=== PATIENT | female | born 1975 | race Caucasian/White ===

== ENCOUNTER → 2018-06-15 16:30 | Outpatient (CLI) | payer OTHER, SELFPAY ==
[2018-06-25 08:31] LABS: HPV APTIMA, High Risk Negative (Negative)
[2018-06-25 08:37] LABS: HPV Reflexed? YES, CHARGE PATIENT
== END ==
PROVIDERS: Family Provider Family Medicine; PCP Family Medicine; Referring Provider Obstetrics & Gynecology; Visit Provider Obstetrics & Gynecology
DX: Z12.4 Encounter for screening for malignant neoplasm of cervix (principal)
CPT/HCPCS: 87624; 88175; G0145

== ENCOUNTER → 2019-05-04 16:05 | Outpatient (CLI) | payer OTHER, SELFPAY ==
[2017-03-16 06:20] VITALS: BMI 35.2
--- NOTE | 2019-05-03 16:30 | VUL_PTH ---
PATIENT: BELLA MILLER LOC: [facility] U#:[id number] AGE/SX: 50/F ROOM: RE05/04/[address]: Dr. Mark Luz MD : 1975 BED: DIS: SPEC #: [id number] RECD: 05/04/19 15:57 STATUS: LISANDRO ISABEL #: [id number] CHILANGO: 05/03/19 16:[address]: Mark Luz DEPT: SURGICAL PATHOLOGY RECD BY: Renato Hernandez ENTERED: 05/05/19 08:06 SP TYPE: VULVA BX OTHR DR: Dr. Rob Sarmiento MD Tissues: Vulva, NOS Procedures: Surgery Specimen Level IV HEADER OPERATION: Removal of right vulvar cyst PRE-OP DIAGNOSIS: N90.7 TISSUE SUBMITTED: Right vulvar cyst removed MICROSCOPIC DIAGNOSIS Right vulvar cyst, biopsy: Consistent with fragments of hidroadenoma papilliferum. AM:allison 05/06/19 MICROSCOPIC DESCRIPTION Slides are reviewed. GROSS DESCRIPTION Received in fixative is one container labeled with the patient's name and designated right vulvar cyst. The specimen consists of multiple irregular fragments of llanes-white soft tissue that in aggregate measure 0.5 x 0.3 x 0.1 cm. The specimen is totally submitted in one cassette. / SJ:rg 05/05/19 TC:1 CPT: 38980
== END ==
PROVIDERS: Family Provider Family Medicine; PCP Family Medicine; Referring Provider Obstetrics & Gynecology; Visit Provider Obstetrics & Gynecology
DX: N90.7 Vulvar cyst (principal)
CPT/HCPCS: 88305

== ENCOUNTER → 2020-10-23 15:15 | Outpatient (CLI) | payer OTHER, SELFPAY ==
[2017-03-16 06:20] VITALS: BMI 35.2
[2020-10-26 20:37] LABS: HPV Reflexed? NOT INDICATED
== END ==
PROVIDERS: PCP Family Medicine; Visit Provider Obstetrics & Gynecology
DX: Z12.4 Encounter for screening for malignant neoplasm of cervix (principal)
CPT/HCPCS: 88175; G0145

== ENCOUNTER → 2024-01-26 | Outpatient (CLI) | payer OTHER, SELFPAY ==
[2024-01-26 09:47] LABS: Absolute Lymphocyte Count 0.86 X10^3/uL (0.83-4.51); Absolute Neutrophil Count 2.1 X10^3/uL (2.0-7.7); Basophil# 0.04 X10^3/uL; Basophil% 1.2 % (0-1); Eosinophil# 0.11 X10^3/uL; Eosinophils% 3.3 % (0-5); Hematocrit 38.7 % (37-47); Hemoglobin 12.9 g/dL (12.0-15.0); Lymphocyte # 0.86 X10^3/ul (0.83-4.51); Lymphocyte % 25.4 % (19-41); Mean Corp Hgb Conc 33.3 g/dL (32-36); Mean Corpuscular Hgb 30.1 pg (27.0-32.0); Mean Corpuscular Volume 90.4 fL (81-99); Mean Platelet Vol. 8.9 fl (6.2-12.0); Monocyte# 0.21 X10^3/uL; Monocyte% 6.2 % (0-10); NRBC Flagged by Analyzer 0 % (0-5); Neutrophil # 2.13 X10^3/uL (2.7-7.7); POSITIVE MORPHOLOGY YES; Platelet Count 220 K/mm3 (150-450); RBC Distribution Width CV 12.1 % (11.6-14.6); RBC Distribution Width SD 39.7 fl (35.1-43.9); Red Blood Count 4.28 M/mm3 (4.2-5.4); White Blood Count 3.4 K/mm3 (4.4-11.0)
[2024-01-26 10:07] LABS: Differential Indicated SCAN CRITERIA MET
[2024-01-26 10:21] LABS: Vitamin D,25 Hydroxy 69.2 ng/mL
[2024-01-26 10:23] LABS: ALB/GLOB Ratio 1.1 RATIO (0.9-2.4); AST(SGOT) 39 U/L (15-37); Alanine Aminotransfer ALT/SGPT 60 U/L (13-56); Alkaline Phosphatase 43 U/L (45-117); Anion Gap 4 (5-15); BUN 19 mg/dL (7-18); BUN/Creat Ratio 22.5 RATIO (10-20); Calcium,Total 8.6 mg/dL (8.5-10.1); Chloride 108 mmol/L (98-107); Cholesterol 201 mg/dL (200); Creatinine, Serum 0.85 mg/dL (0.55-1.02); EST Glomerular Filtration Rate 77 mL/min (>60); Est Glom Filt Rate - Afr Amer 93 mL/min (>60); Estradiol 22.3 pg/mL; Follicle Stimulating Hormone 50.2 mIU/mL; Globulin 3.6 g/dL (2.2-4.2); Glucose 96 mg/dL (74-106); High Density Lipoprotein 51 mg/dL; Potassium 4.1 mmol/L (3.5-5.1); Protein, Total 7.6 g/dL (6.4-8.2); Sodium Level 139 mmol/L (136-145); Triglycerides 81 mg/dL; Very Low Density Lipoprotein 16 mg/dL (5-40)
[2024-01-26 10:27] LABS: Hemoglobin A1c 5.3 % (3.8-5.6)
[2024-01-26 12:16] LABS: Differential Comment SCANNED; Reactive Lymphocyte 1+
[2024-01-29 18:07] LABS: Testosterone Free 0.6 pg/mL (0.0-4.2)
== END | disposition home or self-care (01) ==
LOC: PAVLAB 09:34
PROVIDERS: PCP Family Medicine; Referring Provider Obstetrics & Gynecology; Visit Provider Obstetrics & Gynecology
DX: N95.1 Menopausal and female climacteric states (principal); Z13.1 Encounter for screening for diabetes mellitus; Z13.0 Encounter for screening for diseases of the blood and blood-forming organs and certain disorders involving the immune mechanism; Z13.21 Encounter for screening for nutritional disorder
CPT/HCPCS: 36415; 80053; 80061; 82306; 82670; 83001; 83036; 84402; 85025

== ENCOUNTER → 2024-02-29 | Outpatient (CLI) | payer OTHER, SELFPAY ==
--- NOTE | 2024-02-29 14:01 | BI_ITS ---
MAMMOGRAPHY - BILATERAL SCREENING REASON FOR EXAM: Female, 49 years old. Routine annual screening examination. PERTINENT HISTORY: Non-contributory. TECHNIQUE: Digital bilateral breast tracey (3D mammographic acquisition) in the CC and MLO projections. 2-D mediolateral oblique (MLO) and craniocaudad (CC) views of both breasts were obtained. CAD: Full Field Digital Mammography with Computer Added Detection was performed. COMPARISON: Comparison is made with prior outside examination of January 09, 2022. FINDINGS: Breast Composition: The breasts are heterogeneously dense, which may obscure small masses. There are no dominant masses or suspicious calcifications. No other significant abnormalities are identified. There has been no significant change since the prior study. BI/SCRN MAMM (CAD)W/TRACEY BILAT IMPRESSION: Stable bilateral screening mammogram. Yearly follow-up mammogram recommended. (A) ASSESSMENT CATEGORY: BIRADS Category 1: Negative. A letter regarding these results will be sent to the patient by the facility within 30 days. Approximately 10% of breast cancers are not detected by mammography. A normal mammogram should not delay biopsy of a clinically suspicious abnormality. [id number] Electronically Signed: Titi Dowell MD at 14:49 EDT ,
== END | disposition home or self-care (01) ==
LOC: OPBI 14:01
PROVIDERS: PCP Family Medicine; Referring Provider Obstetrics & Gynecology; Visit Provider Obstetrics & Gynecology
DX: Z12.31 Encounter for screening mammogram for malignant neoplasm of breast (principal)
CPT/HCPCS: 77063; 77067

== ENCOUNTER → 2025-02-20 | Outpatient (CLI) | payer OTHER, SELFPAY ==
--- NOTE | 2025-02-20 11:50 | POL_PTH ---
PATIENT: BELLA MILLER LOC: [facility] U#:[id number] AGE/SX: 50/F ROOM: RE02/20/[address]: Dr. Kellen Salcedo MD : 1975 BED: DIS: 02/20/2025 SPEC #: [id number] RECD: 02/20/25 16:38 STATUS: LISANDRO REBrent #: [id number] CHILANGO: 02/20/25 11:[address]: Kellen Salcedo DEPT: SURGICAL PATHOLOGY RECD BY: Lalo Gross ENTERED: 02/21/25 10:52 SP TYPE: Polyp OTHR DR: Mayte Moreira PA-C Tissues: A - POLYP Procedures: Surgery Specimen Level IV HEADER OPERATION: Cervical polyp removal PRE-OP DIAGNOSIS: Cervical polyp TISSUE SUBMITTED: A- Cervical polyp MICROSCOPIC DIAGNOSIS A. Cervix, polyp, excision: - Benign endocervical polyp with squamous metaplasia. MICROSCOPIC DESCRIPTION Slides are reviewed. GROSS DESCRIPTION A. Received in formalin labeled with the patient's name and date of is a 2.0 x 1.8 x 1.1 cm aggregate of llanes-pink and granular tissue fragments admixed with mucoid material. The largest tissue fragment (1.6 x 0.8 x 0.8 cm) is trisected (on the long axis). Entirely submitted in 2 cassettes as follows: A1: Trisected tissue fragmentA2: Tissue fragments and mucoid material AL 02/21/2025 CPT:18375
[2025-02-23 09:08] LABS: HPV APTIMA, High Risk Negative (Negative)
== END | disposition home or self-care (01) ==
LOC: LABSPEC 16:00
PROVIDERS: PCP Family Medicine; Visit Provider Obstetrics & Gynecology
DX: Z12.4 Encounter for screening for malignant neoplasm of cervix (principal); N84.1 Polyp of cervix uteri; N95.1 Menopausal and female climacteric states
CPT/HCPCS: 87624; 88175; 88305; G0145

== ENCOUNTER → 2025-02-28 | Outpatient (CLI) | payer OTHER, SELFPAY ==
--- NOTE | 2025-02-28 10:45 | BI_ITS ---
EXAM: SCRN MAMM (CAD)W/TRACEY BILAT DATE: 02/28/2025 CLINICAL HISTORY: F, Age 50 y/o , SCREENING FOR BREAST CANCER Maternal grandmother with breast cancer. TECHNIQUE: SCRN MAMM (CAD)W/TRACEY BILAT COMPARISON: Prior exam(s) dated February 29, 2024.. FINDINGS: TISSUE DENSITY: The breasts are heterogeneously dense, which may obscure small masses. Bilateral Breast Mammographic Findings: No significant masses, calcifications or other abnormalities are identified. No suspicious masses, areas of developing architectural distortion, or suspicious calcifications. There has been no significant interval change. BI/SCRN MAMM (CAD)W/TRACEY BILAT IMPRESSION: Stable examination. OVERALL FINAL ASSESSMENT BI-RADS 1: NEGATIVE. RECOMMENDATION: Routine annual follow-up in 1 Year A letter with findings and recommendations will be mailed to the patient. Reading Location: [id number]
--- OUTSIDE RECORDS SUMMARY | 2025-02-28 21:45 | XMS RPT_ITS | CCD ---
Author Organization [facility] Care Team Providers Care Rack Room Worker Name Role Phone Lillie JOLLEY, Mayte Primary Care Provider [phone] Mayte Moreira PA-C Referring Provider Denisse ROSARIO, Dr. Foreman Attending Provider HAM ACOSTA MD Primary Care Unavailable HAM ACOSTA MD Attending Unavailable [facility] Consulting Unavailable HAM ACOSTA MD Admitting Unavailable PROVIDER, UNKNOWN Consulting Unavailable [facility] Consulting Unavailable KELLEN LAZARO MD Admitting Unavailab le KELLEN LAZARO MD Primary Care Unavailab le KELLEN LAZARO MD Attending Unavailab le PROVIDER, UNKNOWN Consulting Unavailable HAM ACOSTA MD Attending Unavailable [facility] Consulting Unavailable HAM ACOSTA MD Admitting Unavailable HAM ACOSTA MD Primary Care Unavailable PROVIDER, UNKNOWN Consulting Unavailable [facility], [place] Primary Care Unavailable Kellen Lazaro Attending Unavailable Kellen Lazaro Attending Unavailable Kellen Lazaro Referring Unavailable [facility], [place] Primary Care Unavailable Kellen Lazaro Referring Unavailable [facility], [place] Primary Care Unavailable Kellen Lazaro Attending Unavailable [facility], [place] Primary Care Unavailable Rob Sarmiento Referring Unavailable Kellen Lazaro Attending Unavailable [facility], [place] Primary Care Unavailable [facility], [place] Referring Unavailable Kellen Lazaro Attending Unavailable Medications Current Medications Medication Drug Class(es) Dates Sig (Normalized) Sig (Original) levothyroxine sodium 0.15 mg oral tablet (2 sources) l-Thyroxine Start: 08-07-2023 take 1 tablet by mouth once daily Levothyroxine (Synthroid) 150 mcg tablet Active 150 ug PO DAILY August 07, 2023 1:00am Completed/Discontinued Medications Medication Drug Class(es) Dates Sig (Normalized) Sig (Original) acetaminophen 325 mg / HYDROcodone bitartrate 5 mg oral tablet (2 sources) Opioid Agonist Start: 03-16-2017 End: 08-07-2023 Hydrocodone-Aceta minophen 1 TABLET tablet Discontinued 1 - 2 {tbl} PO EVERY 4 HOURS NEEDED as needed for Severe Pain (6-10/10) 10 0 March 16, 2017 12:00am August 07, 2023 11:34am acetaminophen 325 mg / oxyCODONE hydrochloride 2.5 mg oral tablet (2 sources) Opioid Agonist Start: 08-07-2023 End: 01-26-2024 Oxycodone-Acetami nophen (Percocet) 2.5-325 mg tablet Discontinued 1 {tbl} PO THREE TIMES A DAY as needed 0 August 07, 2023 1:00am January 26, 2024 8:29am ALPRAZolam 0.5 mg oral tablet (2 sources) Benzodiazepine Start: 03-13-2017 End: 08-07-2023 take 1 tablet by mouth twice daily as needed for anxiety Alprazolam 0.5 MG tablet Discontinued 0.5 mg PO TWICE DAILY NEEDED as needed for Anxiety March 13, 2017 12:00am August 07, 2023 11:34am aspirin 500 mg / caffeine 32.5 mg oral tablet (2 sources) Platelet Aggregation Inhibitor, Nonsteroidal Anti-inflammatory Drug, Central Nervous System Stimulant, Methylxanthine Start: 08-07-2023 End: 01-26-2024 Aspirin-Caffeine (David Back And Body) 500-32.5 mg tablet Discontinued {tbl} PO August 07, 2023 1:00am January 26, 2024 8:29am busPIRone hydrochloride 30 mg oral tablet (2 sources) Start: 03-13-2017 End: 08-07-2023 take 1 tablet by mouth three times daily as needed for anxiety Buspirone 30 MG tablet Discontinued 30 mg PO THREE TIMES A DAY as needed for Anxiety March 13, 2017 12:00am August 07, 2023 11:34am estradiol 1 mg oral tablet (8 sources) Estrogen Start: 02-01-2024 End: 02-20-2025 take 1 tablet by mouth once daily Estradiol (Estrace) 1 mg tablet Discontinued 1 mg PO daily 30 0 February 08, 2025 10:25am February 20, 2025 11:38am Start: 01-26-2024 End: 02-01-2024 Estradiol 0.075 mg/24 hr pat ch weekly Discontinued 1 NMA TD EVERY WEEK 4 12 January 26, 2024 12:00am February 01, 2024 11:00am Yoel ElaineB.Animal is 1 EACH capsule (2 sources) Start: 03-13-2017 End: 08-07-2023 take 1 capsule by mouth once daily [place],Yoel,B.Animalis 1 EACH capsule Discontinued 1 NMA PO DAILY March 13, 2017 12:00am August 07, 2023 11:35am LORazepam 1 mg oral tablet (2 sources) Harry odia zepi ne Start: 01-26-2024 End: 02-20-2025 take 1 tablet by mouth twice daily as needed for anxiety Lorazepam (Ativan) 1 mg tablet Discontinued 1 mg PO TWICE A DAY as needed for anxiety 14 0 January 26, 2024 12:00am February 20, 2025 11:17am Multivitamin tablet (2 sources) Start: 01-26-2024 End: 02-20-2025 Multivitamin tablet Discontinued 1 {tbl} PO DAILY January 26, 2024 12:00am February 20, 2025 11:17am Multivitamin With Folic Acid (Thera) 1 TABLET tablet (2 sources) Start: 03-13-2017 End: 01-26-2024 take 1 tablet by mouth once daily Multivitamin With Folic Acid (Thera) 1 TABLET tablet Discontinued 1 {tbl} PO DAILY March 13, 2017 12:00am January 26, 2024 8:29am Plexus (2 sources) Start: 03-13-2017 End: 01-26-2024 Plexus Discontinued 1 NMA PO DAILY March 13, 2017 12:00am January 26, 2024 8:29am progesterone 100 mg oral capsule (6 sources) Francis vargas Start: 01-26-2024 End: 02-20-2025 take 1 capsule by mouth once daily in the evening Progesterone Micronized (Prometrium) 100 mg capsule Discontinued 100 mg PO EVERY EVENING 30 0 February 08, 2025 10:27am February 20, 2025 11:38am Problems Problem Classification Problem Date Documented Date Episodic/Chronic Menopausal disorders (4 sources) Menopausal syndrome; Translations: [Menopausal and female climacteric states] 01-26-2024 Chronic Comment on above: discussed options an d plan HRT. Mood disorders (4 sources) Depressive disorder; Translations: [Depression] 01-26-2024 Chronic Comment on above: and anxiety PRN ativ an Other acquired deformities (2 sources) Scoliosis deformity of spine; Translations: [Scoliosis, unspecified] 01-26-2024 Chronic Other female genital disorders (2 sources) Mass of vulva; Translations: [Other specified noninflammatory disorders of vulva and perineum] 01-26-2024 Episodic Comment on above: inclusion cyst, offe red drainage if desired but not indicated unless symptomatic. Other female genital disorders (1 source) Polyp of cervix uteri; Translations: [Polyp of cervix uteri] Onset: 02-20-2025 Episodic Other screening for suspected conditions (not mental disorders or infectious disease) (6 sources) Encounter for screening mammogram for malignant neoplasm of breast; Translations: [Encounter for screening for malignant neoplasm of cervix] Onset: 02-20-2025 Episodic Unclassified (1 source) Encounter for screening for malignant neoplasm of colon Unclassified (2 sources) Z12.11 - Encounter for screening for malignant neoplasm of colon Results Test Name Value Interpretation Reference Range Facility PAP IG HPV APTIMA 16/18,45on 02-23-2025 ADEQ Comment Normal . [facility] Comment on above: Order Comment: Speci men Comment: [id number] Specimen Comment: Source.............Cervix Specimen Comment: Other..............Post Menopausal Specimen Comment: No. of containers..01 ThinPrep Vial Result Comment: Sati sfactory for evaluation. Endocervical and/or squamous metaplastic cells (endocervical component) are present. Performed By: #### L 7400.0280 #### [facility] [address] [place], [address] COMM . Normal . [facility] Comment on above: Order Comment: Speci men Comment: [id number] Specimen Comment: Source.............Cervix Specimen Comment: Other..............Post Menopausal Specimen Comment: No. of containers..01 ThinPrep Vial Performed By: #### L 7400.0280 #### [facility] [address] [place], [place], [id number] COMMENT Comment Normal . [facility] Comment on above: Order Comment: Speci men Comment: [id number] Specimen Comment: Source.............Cervix Specimen Comment: Other..............Post Menopausal Specimen Comment: No. of containers..01 ThinPrep Vial Result Comment: This liquid based ThinPrep(R) pap test was screened with the use of an image guided system. Performed By: #### L 7400.0280 #### [facility] [address] [place], [address] DIAG Comment Normal . [facility] Comment on above: Order Comment: Speci men Comment: [id number] Specimen Comment: Source.............Cervix Specimen Comment: Other..............Post Menopausal Specimen Comment: No. of containers..01 ThinPrep Vial Result Comment: NEGA TIVE FOR INTRAEPITHELIAL LESION OR MALIGNANCY. Performed By: #### L 7400.0280 #### [facility] [address] [place], [place], [id number] HPV APTIMA, HR Negative Normal Negative [facility] Comment on above: Order Comment: Speci men Comment: [id number] Specimen Comment: Source.............Cervix Specimen Comment: Other..............Post Menopausal Specimen Comment: No. of containers..01 ThinPrep Vial Result Comment: This nucleic acid amplification test detects fourteen high- risk HPV types (16,18,31,33,35,39,45,51,52,56,58,59,66,68) without differentiation. Performed By: #### L 7400.0280 #### [facility] [address] [place], [address] HPV Fiona Rfx Comment Normal . [facility] Comment on above: Order Comment: Speci men Comment: [id number] Specimen Comment: Source.............Cervix Specimen Comment: Other..............Post Menopausal Specimen Comment: No. of containers..01 ThinPrep Vial Result Comment: Crit erclark not met, HPV Genotype not performed. Performed at: - [facility] [id number] Water Resource Project Manager: Ladan Benitez MD, Phone: [phone] Performed at: =G - [facility] [id number] Water Resource Project Manager: Ladan Benitez MD, Phone: [phone] Performed By: #### L 7400.0280 #### [facility] [address] [place], [address] PAPSMR Comment Normal . [facility] Comment on above: Order Comment: Speci men Comment: [id number] Specimen Comment: Source.............Cervix Specimen Comment: Other..............Post Menopausal Specimen Comment: No. of containers..01 ThinPrep Vial Result Comment: The Pap smear is a screening test designed to aid in the detection of premalignant and malignant conditions of the uterine cervix. It is not a diagnostic procedure and should not be used as the sole means of detecting cervical cancer. Both false-positive and false-negative reports do occur. Performed By: #### L 7400.0280 #### [facility] [address] [place], [place], [id number] PERFORM Comment Normal . [facility] Comment on above: Order Comment: Speci men Comment: [id number] Specimen Comment: Source.............Cervix Specimen Comment: Other..............Post Menopausal Specimen Comment: No. of containers..01 ThinPrep Vial Result Comment: Neftali Parra, Wreath Machine Operator (ASCP) Performed By: #### L 7400.0280 #### [facility] [address] [place], [address] CBC + DIFFon 02-21-2025 Baso # 0.02 x10EE3/UL Normal 0.00 - 0.10 [facility] Comment on above: Performed By: #### 2 20511 #### [address] [address] Basophils/100 WBC (Bld) 0.5 % Normal 0.0 - 2.0 [facility] Comment on above: Performed By: #### 2 26916 #### [address] [address] CBC + DIFF Normal [facility] Comment on above: Result Comment: CBC- COMPLETE BLOOD COUNT Performed By: #### 2 87278 #### [address] [address] EO # 0.09 x10EE3/UL Normal 0.00 - 0.50 [facility] Comment on above: Performed By: #### 2 18826 #### [facility],[address] [place] [address] Eosinophils/100 WBC (Bld) 1.9 % Normal 0.0 - 7.0 [facility] Comment on above: Performed By: #### 2 94913 #### [address] [address] Erythrocyte distribution width (RBC) [Ratio] 12.5 % Normal 12.0 - 15.6 [facility] Comment on above: Performed By: #### 2 34925 #### [address] [address] Hematocrit (Bld) [Volume fraction] 40.4 % Normal 34.0 - 46.0 [facility] Comment on above: Performed By: #### 2 92026 #### [facility],[address] [place] [address] Hemoglobin (Bld) [Mass/Vol] 14.1 g/dL Normal 12.0 - 16.0 [facility] Comment on above: Performed By: #### 2 87052 #### [facility],[address] [place], [place] [id number] Lymph # 1.59 x10EE3/UL Normal 0.80 - 2.80 [facility] Comment on above: Performed By: #### 2 36376 #### [facility],[address] [place], [place] [id number] Lymphocytes/100 WBC (Bld) 33.0 % Normal 20.0 - 45.0 [facility] Comment on above: Performed By: #### 2 97922 #### [facility],[address] [place], [place] [id number] MANUAL DIFF N/A Normal [facility] Comment on above: Performed By: #### 2 82537 #### [facility],[address] [place] [address] MCH (RBC) [Entitic mass] 31 pg Normal 27 - 33 [facility] Comment on above: Performed By: #### 2 01974 #### [facility],[address] [place] [address] MCHC 35 X10 3 Normal 32 - 36 [facility] Comment on above: Performed By: #### 2 68141 #### [facility],[address] [place] [address] MCV (RBC) [Entitic vol] 89 fL Normal 80 - 99 [facility] Comment on above: Performed By: #### 2 95434 #### [facility],[address] [place], [place] [phone] Beadle # 0.29 x10EE3/UL Normal 0.20 - 1.00 [facility] Comment on above: Performed By: #### 2 90413 #### [facility],[address] [place], [place] [phone] MONOS % 5.9 % Normal 0.0 - 10.0 [facility] Comment on above: Performed By: #### 2 98835 #### [facility],[address] [place] [address] Morphology Moncho (Bld) [Interp] N/A Normal [facility] Comment on above: Performed By: #### 2 85451 #### [facility],[address] [place] [address] Neut # 2.83 x10EE3/UL Normal 1.50 - 7.10 [facility] Comment on above: Performed By: #### 2 34139 #### [facility],[address] [place] [address] Neutrophils/100 WBC (Bld) 58.7 % Normal 46.0 - 76.0 [facility] Comment on above: Performed By: #### 2 82289 #### [facility],[address] [place] [address] PLATELET 216 x10EE3/UL Normal 150 - 450 [facility] Comment on above: Performed By: #### 2 57638 #### [facility],[address] [place] [address] Platelet mean volume (Bld) [Entitic vol] 7.8 fL Normal 6.6 - 10.5 [facility] Comment on above: Result Comment: AUTO MATED DIFFERENTIAL Performed By: #### 2 88998 #### [facility],[address] [place] [address] RBC 4.52 x 10EE6/UL Normal 4.10 - 5.30 [facility] Comment on above: Performed By: #### 2 75848 #### [place] [address],[place] [address] WBC 4.8 x 10EE3/UL Normal 4.5 - 10.8 [facility] Comment on above: Performed By: #### 2 22667 #### [facility],[address] [place] [address] CMP with eGFRon 02-21-2025 AGE 50 years Normal [facility] Comment on above: Performed By: #### 2 08466 #### [facility],[address] [place] [address] Albumin [Mass/Vol] 3.8 g/dL Normal 3.4 - 5.0 [facility] Comment on above: Performed By: #### 2 03979 #### [facility],[address] [place] [address] Albumin/Globulin [Mass ratio] 1.0 {ratio} Normal 0.9 - 1.6 [facility] Comment on above: Performed By: #### 2 24862 #### [facility],[address] [place] [address] ALK PHOS 38 U/L Low 46 - 116 [facility] Comment on above: Performed By: #### 2 55262 #### [facility],[address] [place] [address] ALT [Catalytic activity/Vol] 20 U/L Normal 16 - 63 [facility] Comment on above: Performed By: #### 2 36013 #### [facility],[address] [place] [address] Anion gap [Moles/Vol] 12 mmol/L Normal 10 - 20 [facility] Comment on above: Performed By: #### 2 81759 #### [facility],[address] [place] [address] AST [Catalytic activity/Vol] 15 U/L Normal 13 - 39 [facility] Comment on above: Performed By: #### 2 14659 #### [facility],[address] [place] [address] B/C RATIO 20 ratio Normal 0 - 30 [facility] Comment on above: Performed By: #### 2 81818 #### [facility],[address] [place] [address] Bilirubin [Mass/Vol] 0.4 mg/dL Normal 0.2 - 1.0 [facility] Comment on above: Performed By: #### 2 00695 #### [facility],[address] [place] [address] Calcium [Mass/Vol] 8.1 mg/dL Low 8.5 - 10.1 [facility] Comment on above: Performed By: #### 2 27951 #### [facility],[address] [place] [address] Chloride [Moles/Vol] 105 mmol/L Normal 98 - 107 [facility] Comment on above: Performed By: #### 2 94683 #### [facility],[address] [place] [address] CMP with eGFR Normal [facility] Comment on above: Result Comment: COMP REHENSIVE METABOLIC PANEL Performed By: #### 2 52268 #### [facility],[address] [place] [address] CO2 [Moles/Vol] 25.7 mmol/L Normal 21.0 - 32.0 [facility] Comment on above: Performed By: #### 2 66309 #### [facility],[address] [place] [address] Creatinine [Mass/Vol] 0.82 mg/dL Normal 0.55 - 1.02 [facility] Comment on above: Performed By: #### 2 00348 #### [facility],[address] [place] [address] GFR/1.73 sq M.predicted among non-blacks MDRD (S/P/Bld) [Vol rate/Area] mL/min/{1.73_m2} Normal 60 - 999 [facility] Comment on above: Performed By: #### 2 98163 #### [facility],[address] [place] [address] Result Comment: ACCO RDING TO THE NATIONAL KIDNEY DISEASE EDUCATION PROGRAM(NKDE), A NORMAL eGFR IS A VALUE GREATER THAN OR EQUAL TO 60 ML/MIN/1.73 SQ METERS. CHRONIC KIDNEY DISEASE: <60mL/MIN/1.73 SQ METERS KIDNEY FAILURE: <15mL/MIN/1.73 SQ METERS THIS TEST SHOULD ONLY BE USED FOR PATIENTS 18 YEARS OF AGE AND OLDER. Globulin (S) [Mass/Vol] 3.7 g/dL Normal 1.5 - 3.8 [facility] Comment on above: Performed By: #### 2 28481 #### [address] [address] Glucose [Mass/Vol] 85 mg/dL Normal 74 - 106 [facility] Comment on above: Performed By: #### 2 52261 #### [address] [address] Potassium [Moles/Vol] 3.9 mmol/L Normal 3.5 - 5.1 [facility] Comment on above: Performed By: #### 2 99783 #### [address] [address] Protein [Mass/Vol] 7.5 g/dL Normal 6.4 - 8.2 [facility] Comment on above: Performed By: #### 2 24343 #### [address] [address] Sodium [Moles/Vol] 139 mmol/L Normal 136 - 145 [facility] Comment on above: Performed By: #### 2 33490 #### [address] [address] Urea nitrogen [Mass/Vol] 16 mg/dL Normal 7 - 18 [facility] Comment on above: Performed By: #### 2 02481 #### [facility],[address] [place] [address] HEMOGLOBIN A1C (POM)on 02-21 Glucose [Mass/Vol] 116.9 mg/dL High 0.0 - 0.0 [facility] Comment on above: Result Comment: BLDo HEMOGLOBIN A1C REFERENCE RANGESBLDo Suggested Diagnosis HbA1c(%) HbA1C (mmol/mol Diabetic >/=6.5 >/=48 Prediabetes 5.7 - 6.4 39 - 47 Normal <5.7 <39 Performed By: #### 2 90550 #### [facility],[address] [place] [address] HbA1c (Bld) [Mass fraction] 5.7 % Normal 0.0 - 6.5 [facility] Comment on above: Performed By: #### 2 34453 #### [facility],[address] [place] [address] LIPID PROFILEon 02-21-2025 Cholesterol [Mass/Vol] 204 mg/dL Normal 0 - 240 [facility] Comment on above: Performed By: #### 2 64664 #### [facility],[address] [place], [place] [address] Cholesterol in HDL [Mass/Vol] 58 mg/dL Normal 40 - 60 [facility] Comment on above: Performed By: #### 2 64421 #### [facility],[address] [place] [address] Cholesterol in LDL [Mass/Vol] 124 mg/dL Normal 0 - 129 [facility] Comment on above: Performed By: #### 2 90672 #### [facility],[address] [place] [address] Cholesterol.total/Chol esterol in HDL [Mass ratio] 3.5 {ratio} Normal 0.0 - 5.0 [facility] Comment on above: Performed By: #### 2 16618 #### [facility],[address] [place], [place] [address] Lipid 1996 panel Normal [facility] Comment on above: Result Comment: LIPI D PROFILE Performed By: #### 2 05709 #### [facility],[address] [place] [address] Triglyceride [Mass/Vol] 109 mg/dL Normal 0 - 150 [facility] Comment on above: Performed By: #### 2 50234 #### [facility],[address] [place] [address] Cervical or vaginal specimen microscopic examination by liquid based cytology (reportOrdered By: Kellen Lazaro on 02-20-2025 Cytology report Cyto stain.thin prep Doc (Cvx/Vag) Comment . [facility] Comment on above: Criteria not met, HP V Genotype not performed.Performed at: [facility] [id number] Director: Ladan Benitez MD, Phone: [phone] at: =[facility] [id number] Director: Ladan Benitez MD, Phone: [phone] Cervical or vagninal specime n microscopic examination by cytology stain (reported asOrdered By: Kellen Lazaro on 02-20-2025 Cytology report Cyto stain Doc (Cvx/Vag) Comment . [facility] Comment on above: The Pap smear is a s creening test designed to aid in thedetection of premalignant and malignant conditions of theuterine cervix. It is not a diagnostic procedure andshould not be used as the sole means of detecting cervicalcancer. Both false-positive and false-negative reports dooccur. Detection in cervical specim en of any of human papilloma virus (HPV) 16, 18, 31, 33,Ordered By: Kellen Lazaro on 02-20-2025 HPV 16+18+31+33+35+39+45+5 1+52+56+58+59+66+68 DNA Probe+sig amp Ql (Cvx) Negative Negative [facility] Comment on above: This nucleic acid am plification test detects fourteen high- risk HPV types (16,18,31,33,35,39,45,51,52,56,58,59,66,68)without differentiation. Laboratory - CytologyOrdered By: Kellen Lazaro on 02-20-2025 Wreath Machine Operator Cyto stain Nom (Cvx/Vag) [ID] Comment . [facility] Comment on above: Hai Parra Cytolog ist (ASCP) Laboratory - Miscellaneous t estsOrdered By: Kellen Lazaro on 02-20-2025 Service comment (Unsp spec) [Interp] . . [facility] No Panel InformationOrdered By: Kellen Lazaro on 02-20-2025 Pap Smear Specimen Adequacy Comment . [facility] Comment on above: Satisfactory for shauna luation. Endocervical and/or squamous metaplasticcells (endocervical component) are present. Land Use Planner Office Visit Reporton 02-20-2025 Land Use Planner Office Visit Report [facility] [address], [address] [place] [address] OFFICE VISIT Date of Service: 02/20/25 MR#: [id number] Acct: [id number] Name: BELLA MILLER Rep #: [id number] : 1975 Provider: Dr. 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: No Is patient in pain?: No Allergies No Known Allergies Allergy (Verified 02/20/25 11:14) Medications ???Medication ???Instructions ???Recorded ???Confirmed ???Type levothyroxine 150 mcg tablet 150 mcg PO DAILY 08/07/23 02/20/25 History (Synthroid) estradiol 1 mg tablet (Estrace) 1 mg PO QDAY #30 tabs 02/20/25 Rx progesterone micronized 100 mg 100 mg PO QPM #30 caps 02/20/25 Rx capsule (Prometrium) Is last menstrual period known: No Post menopausal: Yes Patient : No : No Control Method: no birthcontrol PFSH Medical History Scoliosis Surgical History H/O knee surgery H/O section H/O thyroidectomy Family History Father Diabetes Hypertension Esophageal cancer Social History adopted: Yes household members: children number of children: 3 current occupational status: employed current occupation: [employer] current occupational exposures/hazards: No pets and animals: Yes history of recent travel: No sexually active: No Smoking Status: Never smoker alcohol intake: current alcohol intake frequency: holidays/special occasions only substance use type: does not use seatbelt use: always do you feel safe at home: Yes History Past Pregnancies Del. Date Name GA/Weeks Outcome Route Bth Weight Gen Labor Lgth Anesthesia Del Locatn Provider FOB Unknown Chaim 2006 Unknown Jaleel 2008 Unknown Quintin 2010 HPI Encounter for routine gynecological examination Details: BELLA MILLER is a 50 year old who presents for annual exam. Last PAP: 10/23/2020 - normal History of abnormal PAP: Last mammogram: 02/29/24 - normal, scheduled for 02/28/25 History of abnormal mammogram: Colon cancer screening: has not had done yet Other preventative health care screenings: PCP Serena Moreira Female Reproductive History Questions: metorrhagia: No, sexually active: Yes, dyspareunia: No and PCB: No Menopausal Symptoms: Yes hot flashes, No night sweats, No weight change, No mood changes, No difficulty concentrating, No sleep problems and No change in libido ROS Const Constitutional: Reports as per HPI; Denies fatigue, increased appetite, poor appetite, night sweats, weight gain or weight loss Cardio Card: Denies chest pain Resp Resp: Denies cough or dyspnea GI GI: Reports as per HPI; Denies abdominal pain, bloating, constipation, nausea or vomiting : Reports as per HPI, hot flashes and other; Denies difficulty voiding, dysuria, hematuria, nipple discharge, pelvic pain, prolapse symptoms, urinary frequency, urinary incontinence, urinary urgency, vaginal discharge, vaginal dryness, vaginal odor or vaginal pruritus Skin Skin/Breast: Denies changing lesions, breast mass, breast pain, breast skin changes or nipple discharge Psych Psych: Reports anxiety and depression; Denies change in libido or difficulty concentrating Exam Const General: cooperative, healthy appearing, comfortable, no acute distress, well developed and well groomed [facility] Head: normal to inspection and normocephalic Ears: hearing grossly normal bilaterally and external ears normal Nose: external nose normal Face and sinus: normal facial exam Neck Neck: normal visual inspection, full ROM and no lymphadenopathy Thyroid: thyroid normal Chest Chest palpation inspection: normal inspection of the chest Breast inspection: normal inspection of the breasts and normal inspection of the axillae Breast palpation: normal palpation of the breasts, normal palpation of the axillae and no axillary lymphadenopathy Resp Effort Inspection: normal respiratory effort GI Inspection: normal to inspection and non-distended Palpation: soft, no hepatosplenomegaly and no guarding General: bladder normal to palpation External Female Exam: normal external appearance, normal appearance of the urethra and no lesions Urethra: normal appearance of the urethra and normal palpation Speculum Exam - Vagina: normal appearance of the vagina and normal vaginal discharge Speculum Exam (more content not included)... Normal [facility] Surgery Specimen Level Sissy 02-20-2025 Surgery Specimen Level IV ---- Patient Age/Sex Location Account Attending Physician ---- BELLA MILLER 50/F LABSPEC [id number] Dr. Kellen Lazaro MD ---- Specimen: [id number] Received: 02/20/25 Status: LISANDRO Spaulding Num: [id number] Spec Type: Polyp Subm Dr: Dr. Kellen Lazaro MD HEADER OPERATION: Cervical polyp removal PRE-OP DIAGNOSIS: Cervical polyp TISSUE SUBMITTED: A- Cervical polyp ---- MICROSCOPIC DIAGNOSIS A. Cervix, polyp, excision: - Benign endocervical polyp with squamous metaplasia. MICROSCOPIC DESCRIPTION Slides are reviewed. GROSS DESCRIPTION A. Received in formalin labeled with the patient's name and date of is a 2.0 x 1.8 x 1.1 cm aggregate of llanes-pink and granular tissue fragments admixed with mucoid material. The largest tissue fragment (1.6 x 0.8 x 0.8 cm) is trisected (on the long axis). Entirely submitted in 2 cassettes as follows: A1: Trisected tissue fragmentA2: Tissue fragments and mucoid material [place] 02/21/2025 CPT:38105 ---- Patient Age/Sex Location Account Attending Physician ---- BELLA MILLER 50/F LABSPEC [id number] Dr. Kellen Lazaro MD ---- Signed (signature on file) Dr. Melita Nobles MD 02/24/25 1347 ---- Normal [facility] Comment on above: Performed By: #### P SUSOWMYA #### [facility] [address] [place], [address] T4, FREE [CCL]on 10-18-2024 Free T4 [Mass/Vol] 1.3 ng/dL Normal 0.9-1.7 [facility] Comment on above: Result Comment: [facility] [address] [place] [address] Milton Vargas III, M.D. [id number] Performed By: #### 2 94427 #### [facility],[address] [place] [address] 54390 CMP with eGFRon 10-17-2024 AGE 49 years Normal [facility] Comment on above: Performed By: #### 2 50568 #### [facility],[address] [place] [address] 24190 Albumin [Mass/Vol] 4.0 g/dL Normal 3.4 - 5.0 [facility] Comment on above: Performed By: #### 2 96501 #### [facility],[address] [place], [place] [id number] Albumin/Globulin [Mass ratio] 1.3 {ratio} Normal 0.9 - 1.6 [facility] Comment on above: Performed By: #### 2 61974 #### [facility],[address] [place] [address] 30492 ALK PHOS 42 U/L Low 46 - 116 [facility] Comment on above: Performed By: #### 2 71683 #### [facility],[address] [place] [address] 65990 ALT [Catalytic activity/Vol] 15 U/L Low 16 - 63 [facility] Comment on above: Performed By: #### 2 13114 #### [facility],[address] [place] [address] 98023 Anion gap [Moles/Vol] 10 mmol/L Normal 10 - 20 [facility] Comment on above: Performed By: #### 2 78467 #### [facility],[address] [place] [address] 25181 AST [Catalytic activity/Vol] 12 U/L Low 13 - 39 [facility] Comment on above: Performed By: #### 2 92759 #### [facility],[address] [place] [address] 40724 B/C RATIO 18 ratio Normal 0 - 30 [facility] Comment on above: Performed By: #### 2 65344 #### [facility],[address] [place] [address] 77084 Bilirubin [Mass/Vol] 0.3 mg/dL Normal 0.2 - 1.0 [facility] Comment on above: Performed By: #### 2 30890 #### [facility],[address] [place] [address] 61755 Calcium [Mass/Vol] 8.5 mg/dL Normal 8.5 - 10.1 [facility] Comment on above: Performed By: #### 2 75571 #### [facility],[address] [place] [address] 10888 Chloride [Moles/Vol] 106 mmol/L Normal 98 - 107 [facility] Comment on above: Performed By: #### 2 12075 #### [facility],[address] [place] [address] 65685 CMP with eGFR Normal [facility] Comment on above: Result Comment: COMP REHENSIVE METABOLIC PANEL Performed By: #### 2 17250 #### [facility],[address] [place] [address] 60351 CO2 [Moles/Vol] 29.1 mmol/L Normal 21.0 - 32.0 [facility] Comment on above: Performed By: #### 2 70542 #### [facility],[address] [place] [address] 50338 Creatinine [Mass/Vol] 1.08 mg/dL High 0.55 - 1.02 [facility] Comment on above: Performed By: #### 2 12475 #### [facility],[address] [place] [address] 16394 eGFR 54 ML/MINUTE Low 60 - 999 [facility] Comment on above: Performed By: #### 2 44211 #### [facility],[address] [place] [address] 53211 GFR/1.73 sq M.predicted among non-blacks MDRD (S/P/Bld) [Vol rate/Area] mL/min/{1.73_m2} Normal 60 - 999 [facility] Comment on above: Result Comment: ACCO RDING TO THE NATIONAL KIDNEY DISEASE EDUCATION PROGRAM(NKDE), A NORMAL eGFR IS A VALUE GREATER THAN OR EQUAL TO 60 ML/MIN/1.73 SQ METERS. CHRONIC KIDNEY DISEASE: <60mL/MIN/1.73 SQ METERS KIDNEY FAILURE: <15mL/MIN/1.73 SQ METERS THIS TEST SHOULD ONLY BE USED FOR PATIENTS 18 YEARS OF AGE AND OLDER. Performed By: #### 2 70313 #### [facility],[address] [place] [address] 81647 Globulin (S) [Mass/Vol] 3.2 g/dL Normal 1.5 - 3.8 [facility] Comment on above: Performed By: #### 2 69632 #### [facility],[address] [place] [address] 17237 Glucose [Mass/Vol] 103 mg/dL Normal 74 - 106 [facility] Comment on above: Performed By: #### 2 78486 #### [facility],[address] [place] [address] 11384 Potassium [Moles/Vol] 3.6 mmol/L Normal 3.5 - 5.1 [facility] Comment on above: Performed By: #### 2 00246 #### [facility],[address] [place] [address] 44141 Protein [Mass/Vol] 7.2 g/dL Normal 6.4 - 8.2 [facility] Comment on above: Performed By: #### 2 83598 #### [facility],[address] [place] [address] 78481 Sodium [Moles/Vol] 141 mmol/L Normal 136 - 145 [facility] Comment on above: Performed By: #### 2 55069 #### [facility],[address] [place] [address] 65104 Urea nitrogen [Mass/Vol] 19 mg/dL High 7 - 18 [facility] Comment on above: Performed By: #### 2 53449 #### [facility],[address] [place] [address] 84380 TSHon 10-17-2024 TSH Qn 1.05 m[IU]/L Normal 0.35 - 3.74 [facility] Comment on above: Performed By: #### 2 70449 #### [facility],[address] [place] [address] 37517 VITAMIN D, 25 HYDROXYon 10-01 VitD 46.70 ng/mL Normal 30.00 - 100 [facility] Comment on above: Result Comment: 25-O HD3 indicates both endogenous production and supplementation. 25-OHD2 is an indicator of exogenous sources, such as diet or supplementation. Therapy is based on measurement of Total 25-OHD, with levels <20 ng/mL indicative of Vitamin D deficiency, while levels between 20 ng/mL and 30 ng/mL suggest insufficiency. Optimal levels are >=30ng/mL. Vitamin D, 25-OH D3 Not Established Vitamin D, 25-OH D2 Not Established Performed By: #### 2 46771 #### [facility],[address] [place] [address] 06287 Land Use Planner Office Visit Reporton 03-28-2024 Land Use Planner Office Visit Report [facility] [address], [address] [place] [address] OFFICE VISIT Date of Service: 03/28/24 MR#: [id number] Acct: [id number] Name: BELLA MILLER GORAN Rep #: [id number] : 1975 Provider: Dr. 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: No Is patient in pain?: No Allergies No Known Allergies Allergy (Verified 03/28/24 15:30) Medications ???Medication ???Instructions ???Recorded ???Confirmed ???Type levothyroxine 150 mcg tablet 150 mcg PO DAILY 08/07/23 03/28/24 History (Synthroid) lorazepam 1 mg tablet (Ativan) 1 mg PO BID PRN anxiety #14 tabs 01/26/24 03/28/24 Rx multivitamin 1 tab PO DAILY 01/26/24 03/28/24 History progesterone micronized 100 mg 100 mg PO QPM #30 caps 01/26/24 03/28/24 Rx capsule (Prometrium) estradiol 1 mg tablet (Estrace) 1 mg PO QDAY #90 tabs 02/01/24 03/28/24 Rx Patient : No : No PFSH Medical History Scoliosis Surgical History H/O knee surgery H/O section H/O thyroidectomy Family History Father Diabetes Hypertension Esophageal cancer Social History adopted: Yes household members: children number of children: 3 current occupational status: employed current occupation: [employer] current occupational exposures/hazards: No pets and animals: Yes history of recent travel: No sexually active: No Smoking Status: Never smoker alcohol intake: current alcohol intake frequency: holidays/special occasions only substance use type: does not use seatbelt use: always do you feel safe at home: Yes HPI 2 M FU Details: BELLA MILLER is a 49 year old who presents for follow-up with climacteric and depression. She is doing very well on the hormone replacement denies any side effects and feels like she has good control of her mood symptoms. She has a significant reduction in hot flashes and night sweats and has no additional issues at this time. She is sleeping better and mood is improving overall. History Past Pregnancies Del. Date Name GA/Weeks Outcome Route Bth Weight Gen Labor Lgth Anesthesia Del Locatn Provider FOB Unknown Chaim 2006 Unknown Jaleel 2008 Unknown Quintin 2010 ROS Const Constitutional: Denies fatigue, fever(s), headache(s), increased appetite, poor appetite, weight gain or weight loss GI GI: Reports as per HPI; Denies abdominal pain, constipation, nausea or vomiting : Reports as per HPI; Denies difficulty voiding, dysuria, hematuria, pelvic pain, urinary frequency, urinary incontinence, urinary hesitancy, urinary urgency, vaginal discharge, vaginal dryness, vaginal odor, vaginal pruritus or other Exam Const General: cooperative, healthy appearing, comfortable, no acute distress and well developed Orientation: alert HENMT Head: normal to inspection and normocephalic Ears: hearing grossly normal bilaterally and external ears normal Nose: external nose normal and nares normal Face and sinus: normal facial exam Neck Neck: normal visual inspection, no lymphadenopathy and trachea midline Thyroid: thyroid normal Resp Effort Inspection: normal respiratory effort Musc Other: gross motor intact no deficits, full bilateral strength Skin General: no rashes or lesions noted Neuro Motor: muscle tone normal throughout Coding Level of Care Code Off vis,est,level 3 Diagnoses Climacteric N95.1 Depression F32.A Assessment and Plan Assessment and Plan (1) Climacteric: Status: Acute Comment: discussed options and plan HRT. (2) Depression: Status: Acute Comment: and anxiety PRN ativan Plan discussed risks, benefits, and alternatives for management of symptoms and patient chooses to remain on HRT. discussed with the patient I will continue to prescribe the lowest dose needed to manage symptoms for the duration of desired therapy. will address annually regarding necessity. 04/02/24 0604 Date Kellen Lazaro MD Cosign Signature: Date (if applicable) CC: Normal [facility] BMP with eGFRon 03-01-2024 AGE 49 years Normal [facility] Comment on above: Performed By: #### 2 17864 #### [facility],[address] [place] [address] Anion gap [Moles/Vol] 12 mmol/L Normal 10 - 20 [facility] Comment on above: Performed By: #### 2 23273 #### [facility],[address] [place] [address] 91535 BMP with eGFR Normal [facility] Comment on above: Result Comment: PATSY Stovall METABOLIC PANEL Performed By: #### 2 73000 #### [facility],[address] [place] [address] 67690 Calcium [Mass/Vol] 8.5 mg/dL Normal 8.5 - 10.1 [facility] Comment on above: Performed By: #### 2 83315 #### [facility],[address] [place] [address] 60315 Chloride [Moles/Vol] 105 mmol/L Normal 98 - 107 [facility] Comment on above: Performed By: #### 2 12944 #### [facility],[address] [place] [address] 36695 CO2 [Moles/Vol] 27.6 mmol/L Normal 21.0 - 32.0 [facility] Comment on above: Performed By: #### 2 86354 #### [facility],[address] [place] [address] 19922 Creatinine [Mass/Vol] 0.80 mg/dL Normal 0.55 - 1.02 [facility] Comment on above: Performed By: #### 2 82090 #### [facility],[address] [place] [address] 87659 GFR/1.73 sq M.predicted among non-blacks MDRD (S/P/Bld) [Vol rate/Area] mL/min/{1.73_m2} Normal 60 - 999 [facility] Comment on above: Performed By: #### 2 96219 #### [facility],[address] [place] [address] 58610 Result Comment: ACCO RDING TO THE NATIONAL KIDNEY DISEASE EDUCATION PROGRAM(NKDE), A NORMAL eGFR IS A VALUE GREATER THAN OR EQUAL TO 60 ML/MIN/1.73 SQ METERS. CHRONIC KIDNEY DISEASE: <60mL/MIN/1.73 SQ METERS KIDNEY FAILURE: <15mL/MIN/1.73 SQ METERS THIS TEST SHOULD ONLY BE USED FOR PATIENTS 18 YEARS OF AGE AND OLDER. Glucose [Mass/Vol] 87 mg/dL Normal 74 - 106 [facility] Comment on above: Performed By: #### 2 21473 #### [facility],[address] [place] [address] 69875 Potassium [Moles/Vol] 4.1 mmol/L Normal 3.5 - 5.1 [facility] Comment on above: Performed By: #### 2 33818 #### [facility],[address] [place] [address] 14332 Sodium [Moles/Vol] 140 mmol/L Normal 136 - 145 [facility] Comment on above: Performed By: #### 2 17095 #### [facility],[address] [place] [address] 31173 Urea nitrogen [Mass/Vol] 13 mg/dL Normal 7 - 18 [facility] Comment on above: Performed By: #### 2 25368 #### [facility],[address] [place] [address] 39300 T4-FREE (FREE THYROXINE)on 0 03-01-2024 Free T4 [Mass/Vol] 1.02 ng/dL Normal 0.76 - 1.46 [facility] Comment on above: Result Comment: P otential of falsely elevated results when biotin concentrations are > 10 ng/mL. Performed By: #### 2 19330 #### [facility],[address] [place] [address] 78566 TSHon 03-01-2024 TSH Qn 0.77 m[IU]/L Normal 0.35 - 3.74 [facility] Comment on above: Performed By: #### 2 14487 #### [facility],[address] [place] [address] 80862 SCRN MAMM (CAD)W/TRACEY BILATo n 02-29-2024 SCRN MAMM (CAD)W/TRACEY BILAT [facility] Imaging Services [address] [place] [address] SCRN MAMM (CAD)W/TRACEY BILAT MR#: [id number] Acct: [id number] Name: BELLA MILLER Rep #: [id number] : 1975 F 49 From: Titi schmitt MD PCP: Mayte Moreira PA-C Status: REG CLI Study: SCRN MAMM (CAD)W/TRACEY BILAT Date of Exam: 02/01 04/26 Exam# [id number] Ordering Dr: Kellen Lazaro [id number] MAMMOGRAPHY - BILATERAL SCREENING REASON FOR EXAM: Female, 49 years old. Routine annual screening examination. PERTINENT HISTORY: Non-contributory. TECHNIQUE: Digital bilateral breast tracey (3D mammographic acquisition) in the CC and MLO projections. 2-D mediolateral oblique (MLO) and craniocaudad (CC) views of both breasts were obtained. CAD: Full Field Digital Mammography with Computer Added Detection was performed. COMPARISON: Comparison is made with prior outside examination of 2022. FINDINGS: Breast Composition: The breasts are heterogeneously dense, which may obscure small masses. There are no dominant masses or suspicious calcifications. No other significant abnormalities are identified. There has been no significant change since the prior study. BI/SCRN MAMM (CAD)W/TRACEY BILAT IMPRESSION: Stable bilateral screening mammogram. Yearly follow-up mammogram recommended. (A) ASSESSMENT CATEGORY: BIRADS Category 1: Negative. A letter regarding these results will be sent to the patient by the facility within 30 days. Approximately 10% of breast cancers are not detected by mammography. A normal mammogram should not delay biopsy of a clinically suspicious abnormality. [id number] Electronically Signed: Titi Dowell MD at 14:49 EDT Reading Location ID and State: [facility] / [place] , Service support , CC: SHOLA Moreira; Dr. Kellen Lazaro MD It Project Lead: Signed Normal [facility] RBC Folateon 09-15-2020 FOLATE, RBC 610 ng/mL Normal >=366 [facility] Comment on above: Performed By: #### L H, FSH #### [facility] Routine Lab [address] [address] FSHon 09-14-2020 FSH 16.6 mU/mL Normal [facility] Comment on above: Performed By: #### L H, FSH #### [facility] [place] Routine Lab [address] [address] LHon 09-14-2020 LH Normal [facility] Comment on above: Result Comment: 14.1 Reference Follicular: 1-12 Midcycle: 20-90 Luteal: 1-10 Post Tangela: >20 range: Follicular: 1-12 Midcycle: 20-90 Luteal: 1-10 Post Tangela: >20 Performed By: #### L H, FSH #### [facility] [place] Routine Lab [address] [address] Estradiol-17Bon 09-13-2020 Estradiol-17B 56 pg/mL Normal [facility] Comment on above: Performed By: #### E 2 #### [facility] [place] Routine Lab [address] [place], [place] [address] RBC Folateon 09-13-2020 Hematocrit (Bld) [Volume fraction] 41.5 % Normal 36.0-46.0 [facility] Comment on above: Performed By: #### L H, FSH #### [facility] Routine Lab [address] [place], [place] [address] Final Surgical Pathology Rep sallie 02-20-2020 Final Surgical Pathology Report . 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 NO MALIGNANCY. CLINICAL INFORMATION: Procedure: TOTAL THYROIDECTOMY Preoperative diagnosis: THYROTOXICOSIS WITH DIFFUSE GOITER Postoperative diagnosis: THYROTOXICOSIS WITH DIFFUSE GOITER SPECIMEN: TOTAL THYROID GROSS DESCRIPTION: Received in formalin, labeled with the patient's name, Case #[id number], and total thyroid is an oriented total thyroidectomy weighing 21 g the orienting sutures: long stitch -left lobe and short stitch -right lobe. The right lobe measures 3.7 x 2.7 x 3 cm, the left lobe measures 3.1 x 2.5 x 2.1 cm. The right thyroid lobe is inked blue, the left thyroid lobe is inked black and the isthmus is inked yellow. The right thyroid lobe is sectioned to reveal a multiloculated cystic appearing nodule measuring 3.3 x 2.5 x 2 cm. The isthmus is sectioned to reveal a pink -red unremarkable cut surface. The left thyroid lobe is sectioned to reveal 2 cystic nodules measuring 0.5 and 0.8 cm greatest dimension. RS -6, A1-isthmus, A2- A5-right thyroid lobe with large cystic nodule, A6 -left thyroid lobe with 2 cystic nodule, A7 -A9 -remaining right thyroid lobe nodule, A10 -A03-ecvsbnkuxf left thyroid lobe with nodule Dictated by CECILIA PALOMO Electronically Signed by Pathology Report verified by [facility] Electronically signed by JUSTICE LOGAN DO Sign out Date: 02/20/2020 14:15 Performing Lab: [facility], [address] [place] [address] ([place]) Comment on above: Performed By: #### S PFR #### [place] [address] CAIONozarina 02-16-2020 Calcium Ionized 0.97 mmol/L Low 1.12-1.32 [facility] ([place]) Comment on above: Performed By: #### C AION #### [address] [address] Calcium Ionized 1.05 mmol/L Low 1.12-1.32 [facility] ([place]) Comment on above: Performed By: #### C AION #### [address] [address] .Auto Diffon 02-15-2020 Ammonia (P) [Mass/Vol] 0.30 10 3/mcL Normal 0.09-1.40 [facility] ([place]) Comment on above: Performed By: #### G FR, BMP, ANEU, ADIFF, CBC #### [address] [address] Basophils (Bld) [#/Vol] 0.00 10 3/mcL Normal 0.00-0.27 [facility] ([place]) Comment on above: Performed By: #### G FR, BMP, ANEU, ADIFF, CBC #### [address] [address] Basophils/100 WBC (Bld) 0.5 % Normal 0.0-2.5 [facility] ([place]) Comment on above: Performed By: #### G FR, BMP, ANEU, ADIFF, CBC #### [address] [address] Eosinophils (Bld) [#/Vol] 0.00 10 3/mcL Normal 0.00-0.65 [facility] ([place]) Comment on above: Performed By: #### G FR, BMP, ANEU, ADIFF, CBC #### [address] [address] Eosinophils/100 WBC (Bld) 0.9 % Normal 0.0-6.0 [facility] ([place] Comment on above: Performed By: #### G FR, BMP, ANEU, ADIFF, CBC #### [address] [address] Lymphocytes (Bld) [#/Vol] 1.30 10 3/mcL Normal 0.90-4.32 [facility] ([place] Comment on above: Performed By: #### G FR, BMP, ANEU, ADIFF, CBC #### [address] [address] Lymphocytes/100 WBC (Bld) 29.3 % Normal 20.0-40.0 [facility] ([place] Comment on above: Performed By: #### G FR, BMP, ANEU, ADIFF, CBC #### [address] [address] Monocytes/100 WBC (Bld) 6.3 % Normal 2.0-13.0 [facility] ([place] Comment on above: Performed By: #### G FR, BMP, ANEU, ADIFF, CBC #### [address] [address] Neutrophils/100 WBC (Bld) 63.0 % Normal 50.0-75.0 [facility] ([place] Comment on above: Performed By: #### G FR, BMP, ANEU, ADIFF, CBC #### [address] [address] .GFRon 02-15-2020 GFR Non- >60 Normal [facility] ([place] Comment on above: Result Comment: GFR Population mean for , Non- Americans Ages 20-29 = 116 mL/min/1.73 sq.m. Ages 30-39 = 107 mL/min/1.73 sq.m. Ages 40-49 = 99 mL/min/1.73 sq.m. Ages 50-59 = 93 mL/min/1.73 sq.m. Ages 60-69 = 85 mL/min/1.73 sq.m. Ages 70+ = 75 mL/min/1.73 sq.m. Chronic Kidney Disease: Less than 60 mL/min/1.73 square meters End Stage Renal Disease: Less than 15 mL/min/1.73 square meters Performed By: #### G FR, BMP, ANEU, ADIFF, CBC #### [address] [address] GFR >60 Normal [facility] ([place] Comment on above: Result Comment: GFR Population mean for , Non- Americans Ages 20-29 = 116 mL/min/1.73 sq.m. Ages 30-39 = 107 mL/min/1.73 sq.m. Ages 40-49 = 99 mL/min/1.73 sq.m. Ages 50-59 = 93 mL/min/1.73 sq.m. Ages 60-69 = 85 mL/min/1.73 sq.m. Ages 70+ = 75 mL/min/1.73 sq.m. Chronic Kidney Disease: Less than 60 mL/min/1.73 square meters End Stage Renal Disease: Less than 15 mL/min/1.73 square meters Performed By: #### G FR, BMP, ANEU, ADIFF, CBC #### [address] [address] .NEUABSon 02-15-2020 Neutrophils (Bld) [#/Vol] 2.80 10 3/mcL Normal 2.25-8.10 [facility] ([place] Comment on above: Performed By: #### G FR, BMP, ANEU, ADIFF, CBC #### [address] [id number] Calcium [Mass/Vol] 8.6 mg/dL Normal 8.4-10.1 [facility] ([place]) Comment on above: Performed By: #### Wanda FR, BMP, ANEU, ADIFF, CBC #### [address] [address] Chloride [Moles/Vol] 109 mmol/L Normal 98-110 [facility] ([place] Comment on above: Performed By: #### G FR, BMP, ANEU, ADIFF, CBC #### [address] [address] CO2 [Moles/Vol] 27 mmol/L Normal 22-32 [facility] ([place] Comment on above: Performed By: #### G FR, BMP, ANEU, ADIFF, CBC #### [address] [address] Creatinine [Mass/Vol] 0.79 mg/dL Normal 0.50-1.20 [facility] ([place]) Comment on above: Performed By: #### G FR, BMP, ANEU, ADIFF, CBC #### [address] [address] Electrolyte Balance 5.0 mEq/L Normal 4.0-15.0 [facility] ([place] Comment on above: Performed By: #### G FR, BMP, ANEU, ADIFF, CBC #### [address] [address] Glucose [Mass/Vol] 89 mg/dL Normal 70-110 [facility] ([place] Comment on above: Performed By: #### G FR, BMP, ANEU, ADIFF, CBC #### [address] [address] Potassium [Moles/Vol] 4.4 mmol/L Normal 3.5-5.0 [facility] ([place] Comment on above: Performed By: #### G FR, BMP, ANEU, ADIFF, CBC #### [place] [address] Sodium [Moles/Vol] 141 mmol/L Normal 136-145 [facility] ([place] Comment on above: Performed By: #### G FR, BMP, ANEU, ADIFF, CBC #### [place] [address] Urea nitrogen [Mass/Vol] 18.0 mg/dL Normal 8.0-22.0 [facility] ([place] Comment on above: Performed By: #### G FR, BMP, ANEU, ADIFF, CBC #### [place] [id number] Urea nitrogen/Creatinine [Mass ratio] 22.8 ratio High 10.0-22.0 [facility] ([place] Comment on above: Performed By: #### G FR, BMP, ANEU, ADIFF, CBC #### [place] [address] CBCon 02-15-2020 Erythrocyte distribution width (RBC) [Ratio] 12.7 % Normal 11.5-15.5 [facility] ([place] Comment on above: Performed By: #### G FR, BMP, ANEU, ADIFF, CBC #### [place] [id number] Hematocrit (Bld) [Volume fraction] 39.3 % Normal 34.0-46.0 [facility] ([place] Comment on above: Performed By: #### G FR, BMP, ANEU, ADIFF, CBC #### [place] [address] Hemoglobin (Bld) [Mass/Vol] 13.7 G/dL Normal 12.0-16.0 [facility] ([place] Comment on above: Performed By: #### G FR, BMP, ANEU, ADIFF, CBC #### [place] [id number] MCH (RBC) [Entitic mass] 31.5 pg Normal 27.0-33.0 [facility] ([place] Comment on above: Performed By: #### G FR, BMP, ANEU, ADIFF, CBC #### [place] [address] MCHC (RBC) [Mass/Vol] 35.0 G/dL Normal 32.0-36.0 [facility] ([place] Comment on above: Performed By: #### G FR, BMP, ANEU, ADIFF, CBC #### [place] [id number] MCV (RBC) [Entitic vol] 90.1 fL Normal 80.0-99.0 [facility] ([place] Comment on above: Performed By: #### G FR, BMP, ANEU, ADIFF, CBC #### [place] [id number] Platelet mean volume (Bld) [Entitic vol] 7.7 fL Normal 6.6-10.5 [facility] ([place] Comment on above: Performed By: #### G FR, BMP, ANEU, ADIFF, CBC #### [place] [id number] Platelets (Bld) [#/Vol] 184 10 3/mcL Normal 150-450 [facility] ([place] Comment on above: Performed By: #### G FR, BMP, ANEU, ADIFF, CBC #### [facility] [address] [place], [place] [address] RBC (Bld) [#/Vol] 4.36 10 6/mcL Normal 4.10-5.30 [facility] ([place] Comment on above: Performed By: #### G FR, BMP, ANEU, ADIFF, CBC #### [facility] [address] [place] [address] WBC (Bld) [#/Vol] 4.40 10 3/mcL Low 4.50-10.80 [facility] ([place] Comment on above: Performed By: #### G FR, BMP, ANEU, ADIFF, CBC #### [facility] [address] [place] [address] NM THYROID IMAGING W/UPTAKE MULTIPLEon 04-13-2019 NM THYROID IMAGING W/UPTAKE MULTIPLE ORIGINAL NM THYROID SCAN W/ UPTAKE Clinical Statement: Thyrotoxicosis with toxic multinodular goiter without thyrotoxic crisis or storm, excessive perspiration, nervousness Technique: 301 uCi of I-123, p.o. Pinhole gamma camera imaging: Anterior, DUNCAN and BELARUSIAN projections. Thyroid uptake counts acquired at 5 and 24 hours. Comparison: Thyroid ultrasound 01/25/2019 Findings: 5 hr uptake: 21%% (ref range: 5-20%) 24 hr uptake: 32% (ref range: 10-35%) The thyroid scan shows a large warm to hot nodule centered in the midportion of the LEFT thyroid lobe. There is a smaller one nodule in the inferior RIGHT thyroid lobe. The remainder of the thyroid gland shows heterogeneous diminished activity, possibly due to some suppression of activity from the LEFT side warm to hot nodule. IMPRESSION: Normal uptake values. However, toxic nodular goiter can often yield uptake values within the normal range and should be considered if clinically suspected. In fact, there is a large hyperfunctioning warm to hot nodule in the LEFT thyroid lobe. Additional smaller hyperfunctioning warm nodule in the RIGHT thyroid lobe. Interpreted By: Manoj Amador DO Preliminary Report By: Manoj Amador DO Electronically Signed By: Manoj Amador DO Dictated Date: 04/13/2019 1:36:52 PM Prelim Date: 04/13/2019 1:36:52 PM Sign Date: 04/13/2019 1:43:29 PM Normal [facility] ([place]) Vital Signs Date Time Vital Sign Value Performing Clinician Faci lity 02-20-2025 11:12-0400 Body height 182.88 cm [employer] PA-C Work Phone: [facility] 02-20-2025 11:12-0400 Body mass index (BMI) [Ratio] 34.6 kg/m2 Mayte [place] PA-C Work Phone: [facility] 02-20-2025 11:12-0400 Body weight 115.77 kg Mayte [employer] PA-C Work Phone: [facility] 02-20-2025 11:12-0400 Diastolic blood pressure 81 mm[Hg] Mayte Bloomfield PA-C Work Phone: [facility] 02-20-2025 11:12-0400 Systolic blood pressure 127 mm[Hg] [facility] PA-C Work Phone: [facility] Encounters Encounter Date Encounter Type Care Provider Facility Start: 02-28-2025 ambulatory Kellen pazy:[facility] Start: 02-21-2025 End: 02-21-2025 ambulatory [facility] Start: 02-20-2025 End: 02-20-2025 ambulatory [facility] PA-C Work Phone: -[facility]atory Specimen Start: 02-20-2025 End: 02-20-[address] Kellen Lazaro MD -Laboratory Specimen Work Phone: Start: 02-20-2025 End: 02-20-[address] Kellen Lazaro MD -[facility] Work Phone: Start: 02-20-2025 End: 02-20-[address] Kellen Lazaro MD [facility] Start: 02-20-2025 End: 02-20-2025 ambulatory [facility] PA-C Work Phone: -[facility] Start: 02-20-2025 End: 02-20-[facility] Start: 10-17-2024 End: 10-17-2024 ambulatory HAM ROSARIO [facility] Start: 03-28-2024 End: 03-28-2024 ambulatory Mayte Moreira Facility:[facility] Start: 03-01-2024 End: 03-01-2024 ambulatory HAM ROSARIO [facility] Start: 02-29-2024 End: 02-29-2024 ambulatory Kellen Lazaro Facility:[facility] Procedures Date Procedure Procedure Detail Performing Clinician Start: 02-20-2025 Liquid based cervica l cytology screening [facility] PA-Sia Work Phone: Comment on above: NEGATIVE FOR INTRAEP ITHELIAL LESION OR MALIGNANCY. This liquid based Th inPrep(R) pap test was screened withthe use of an image guided system. Plan of Treatment Date Care Activity Detail Author Start: 02-28-2025 MG Breast - bilateral Screening [facility] CBC W Auto Different ial panel - Blood [facility] Comprehensive metabo lic 1999 panel - Serum or Plasma [facility] Hemoglobin A1c/Hemog lobin.total in Blood [facility] Lipid 1996 panel - S abilio or Plasma [facility] Payers Date Payer Category Payer Self-pay 2024 Unknown [id number] 2010 Unknown [id number] 1975 Unknown [id number] 2.16.8 [id number] 1975 Unknown [id number] 2.16.8 [id number] 1977 Unknown [id number] 2.16.8 [id number] Unknown [id number] 2.16.8 [id number] Unknown [id number] 2.16.8 [id number] Unknown [id number] 2.16.8 [id number] Unknown [id number] 2.16.8 [id number] Unknown [id number] 2.16.8 [id number] Social History Date Type Detail Facility Start: 08-07-2023 [facility] Start: 1975 Sex Assigned At Female [facility] Evaluation note 02-20-2025 Note Date & Type Note Facility 02-20-2025 Evaluation note Diagnosis Onset Date Resolution Climacteric acute February 20 11:11am Depression acute February 20 11:11am Encounter for routine gynecological examination noneactive February 20, 2025 11:11am [facility] Work Phone: Evaluation note Note Date & Type Note Facility Evaluation note Diagnosis Onset Date Resolution Climacteric acute February 20 11:11am Depression acute February 20 11:11am Encounter for routine gynecological examination noneactive February 20, 2025 11:11am [facility] Work Phone: Reason for referral (narrative) Note Date & Type Note Facility Reason for referral (narrative) No reason for referral information available [facility] Work Phone: Summary Purpose Family History No Family History Records Found Relationship Condition Age at Onset Recorded Date/T quentin father Diabetes mellitus Unknown Hypertension Unknown Malignant neoplasm of esophagus Unknown Advance Directives No Advanced Directives Records FoundNo Advanced Directives Records FoundNo Advanced Directives Records FoundNo Advanced Directives Records Found Chief Complaint and Reason for Visit Chief Complaint 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 Date 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 20, 2025 11:1 1am Reason for Visit Admit Date Climacteric February 20, 2025 11:1 1am Depression February 20, 2025 11:1 1am Encounter for routine gynecological exam ination February 20, 2025 11:11am Additional Source Comments INFORMATION SOURCE (unrecogn ized section and content) DATE CREATED AUTHOR 02/29/2020 [facility] ([place]) DATE CREATED AUTHOR AUTHOR'S ORGANIZ ATION 09/16/2020 [facility] DATE CREATED AUTHOR AUTHOR'S ORGANIZ ATION 02/22/2025 Bienvenido Soto [facility] DATE CREATED AUTHOR AUTHOR'S ORGANIZ ATION 02/24/2025 [facility] Care Teams (unrecognized sec tion and content) Team Status: Active Member Role/Relationship Status Dates Mayte GLOVER PA-C Primary Care Provider Active Team Status: Inactive Member Role/Relationship Status Dates Mayte GLOVER PA-C Primary Care Provider Active Start: February 20, 2025 End: February 20, 2025 Mayte GLOVER PA-C Referring Provider Active Start: February 20, 2025 End: February 20, 2025 Dr. Kellen Lazaro MD Attending Provider Active Start: February 20, 2025 End: February 20, 2025 Team Status: Inactive Member Role/Relationship Status Dates Mayte GLOVER PA-C Primary Care Provider Active Start: February 20, 2025 End: February 20, 2025 Dr. Kellen Lazaro MD Attending Provider Active Start: February 20, 2025 End: February 20, 2025 Goals (unrecognized section and content) Goals may be documented in a n alternate sectionGoals may be documented in an alternate section FOR RECORDS PERTAINING TO PATIENTS WHO ARE OR HAVE BEEN ENROLLED IN A CHEMICAL DEPENDENCY/SUBSTANCEABUSE PROGRAM, SOME INFORMATION MAY BE OMITTED. This clinical summary was aggregated from multiple sources. Caution should be exercised in using it in the provision of clinical care. This summary normalizes information from multiple sources, and as a consequence, information in this document may materially change the coding, format and clinical context of patient data. In addition, data may be omitted in some cases. CLINICAL DECISIONS SHOULD BE BASED ON THE PRIMARY CLINICAL RECORDS. [facility] [employer] provides no warranty or guarantee of the accuracy or completeness of information in this document.
== END | disposition home or self-care (01) ==
PROVIDERS: PCP Family Medicine; Referring Provider Obstetrics & Gynecology; Visit Provider Obstetrics & Gynecology
DX: Z12.31 Encounter for screening mammogram for malignant neoplasm of breast (principal); Z80.3 Family history of malignant neoplasm of breast
CPT/HCPCS: 77063; 77067